=== PATIENT | male | born 1950 | race Caucasian/White ===

== ENCOUNTER 2021-10-25 12:57 | Observation (INO) | payer MEDICARE, SELFPAY ==
[2021-10-25] VITALS (13 sets, daily range): BP systolic 81–125; BP diastolic 56–91; PULSE 70–77; RESP 10–21; TEMP 36.1–36.8; O2SAT 98–100; BMI 22.9; BMI 21.9
--- NOTE | 2021-10-25 13:18 | EX.ED.DYSGE1 ---
HPI History of Present Illness Chief Complaint: Fatigue Informant: patient Narrative Narrative: 71-year-old male no prior visits to this institution was moved to halfway in [place] approximately 2 months ago. Since that time he states that he has not felt like eating or drinking much. He has a history of prior stroke and prostate cancer. Was noted over the past several days to become an increasing lethargic and weak. They started subcutaneous hydration but the patient kept removing the catheter. Family states that they were told that his kidney function is off but there was no labs that accompany the patient. I am told that his blood pressure at the halfway was 91/59. He has not had any fevers. Physical therapy stopped working with him because he was refusing it. Patient tells me he is not depressed. [facility] Medical History (Updated 10/25/21 @ 15:[address] Morgan Jovel, ) Adult failure to thrive Anemia, unspecified Atherosclerotic heart disease of [place] coronary artery without angina pectoris Cellulitis, unspecified Cerebral infarction, unspecified Chronic atrial fibrillation, unspecified Edema, unspecified Essential (primary) hypertension Hyperlipidemia, unspecified Ischemic cardiomyopathy Malignant neoplasm of prostate Muscle weakness (generalized) Personal history of COVID-19 Post covid-19 condition, unspecified Presence of cardiac pacemaker Type 2 diabetes mellitus without complications Home Medications amlodipine 2.5 mg PO DAILY 10/25/21 [History Last Taken Unknown] atorvastatin 20 mg PO QHS 10/25/21 [History Last Taken Unknown] bicalutamide 50 mg PO DAILY 10/25/21 [History Last Taken Unknown] clopidogrel 10/25/21 [History Last Taken Unknown] digoxin 125 mcg PO DAILY 10/25/21 [History Last Taken Unknown] furosemide 40 mg PO DAILY PRN PRN 10/25/21 [History Last Taken Unknown] leuprolide acetate (6 month) [Eligard (6 month)] 45 mg SUBCUT X1 10/25/21 [History Last Taken Unknown] losartan 50 mg 10/25/21 [History Last Taken Unknown] metoprolol succinate PO 10/25/21 [History Last Taken Unknown] mirtazapine mg 10/25/21 [History Last Taken Unknown] pantoprazole PO 10/25/21 [History Last Taken Unknown] sertraline mg 10/25/21 [History Last Taken Unknown] sitagliptin [Januvia] 100 mg PO DINNER 10/25/21 [History Last Taken Unknown] Allergy/AdvReac Type Severity Reaction Status Date / Time No Known Allergies Allergy Verified 10/25/21 14:29 Social History (Updated 10/25/21 @ 13:[address] Morgan Jovel, DO) housing: halfway current gender identity: male Smoking Status: Never smoker substance use type: does not use ROS ROS ED ROS Narrative Generalized fatigue Constitutional Constitutional ED: Denies chills, fever(s) or weight loss Eyes Eyes: Denies change in vision or diplopia ENT ENT ED: Denies ear pain, rhinorrhea or sore throat Cardiovascular Cardiovascular: Denies chest pain, orthopnea, palpitations or racing heartbeat Respiratory/Chest Respiratory/Chest: Denies cough, dyspnea or orthopnea Gastrointestinal Gastrointestinal: Denies abdominal pain, diarrhea, nausea or vomiting Genitourinary Genitourinary ED: Denies dysuria, hematuria or urinary frequency Musculoskeletal Musculoskeletal: Denies arthralgias or myalgias Integumentary Denies abscess or rash Neurologic Neurologic: Denies headache(s) or weakness Psychiatric Psychiatric: Denies anxiety, depression, suicidal ideation or suicidal thoughts Endocrine Endocrinology: Denies polydipsia, polyphagia or polyuria Allergic/Immunologic Allergic/Immunologic ED: Denies mouth swelling, tongue swelling or urticaria EXAM Physical Exam Const Vital Signs: 10/25/21 12:59 10/25/21 13:15 10/25/21 13:30 Temperature 97 F L Temperature Source Temporal Pulse Rate 70 70 70 Respiratory Rate 18 20 H Respiratory Effort Respiratory Pattern Blood Pressure 90/63 101/69 95/62 Blood Pressure Mean 72 79 73 Pulse Ox 98 98 Oxygen Delivery Method Room Air Room Air 10/25/21 13:45 10/25/21 14:00 10/25/21 14:15 Temperature Temperature Source Pulse Rate 70 70 70 Respiratory Rate 21 H 12 10 L Respiratory Effort Respiratory Pattern Blood Pressure 82/56 L 121/78 H 86/60 L Blood Pressure Mean 64 92 68 Pulse Ox 98 98 99 Oxygen Delivery Method Room Air Room Air Room Air 10/25/21 14:17 10/25/21 14:30 Temperature Temperature Source Pulse Rate 70 Respiratory Rate 13 Respiratory Effort Normal Non-Labored Respiratory Pattern Normal Blood Pressure 81/61 L Blood Pressure Mean 67 Pulse Ox 99 Oxygen Delivery Method Room Air Positive well developed and cachectic General Appearance ED: well developed and cachectic Nutritional Appearance: cachectic HEENT Reports normocephalic, head/scalp atraumatic, TM's clear and moist mucous membranes Negative for trauma Tympanic Membrane ED: Yes TM's clear Eyes PERRL and EOMs intact bilaterally Neck no lymphadenopathy, supple and no JVD Resp normal respiratory effort and clear to auscultation bilaterally Cardio regular rate, regular rhythm and no murmurs GI normal to inspection, nondistended, normoactive bowel sounds and non-tender Palpation: soft Back/Spine no CVA tenderness and normal ROM Extremity normal to inspection General Extremety ED: Negative for edema General Extremity: Negative for edema Neuro oriented x3 and CN's II-XII intact bilaterally Sensorium / Orientation: alert Motor Exam: strength 5/5 throughout Psych mental status grossly normal Mood & Affect: Negative for depressed or tearful Skin no rashes or lesions noted and no wounds MDM MDM MDM Narrative Medical decision making narrative: White blood cell count is 10.1 with a hemoglobin 12.2. Hemoglobin was ten 1 month ago. Creatinine today is 2.33 with a BUN of 47. 1 month ago his creatinine was 1. My interpretation of the chest x-ray is no acute process. Patient has been borderline hypotensive with mean systolic readings from 62-70. He has been receiving IV fluids. Plan will be admission for continued hydration. Lab Data Labs: Laboratory Results - last 24 hr 10/25/21 10/25/21 10/25/21 14:10 14:10 14:10 WBC 10.1 RBC 4.04 L Hgb 12.2 L Hct 37.0 L MCV 91.6 MCH 30.2 MCHC 33.0 RDW Std Deviation 48.9 H RDW Coeff of Jaleel 14.6 Plt Count 162 MPV 11.0 Immature Gran % (Auto) 0.400 Neut % (Auto) 66.6 Lymph % (Auto) 22.4 [place] % (Auto) 8.7 Eos % (Auto) 1.4 Baso % (Auto) 0.5 Absolute Neuts (auto) 6.8 Absolute Lymphs (auto) 2.27 Nucleated RBC % 0 PT 12.8 INR 1.0 APTT 27.6 Sodium 140 Potassium 3.9 Chloride 107 Carbon Dioxide 25.0 Anion Gap 8 BUN 47 H Creatinine 2.33 H Estim Creat Clear Calc 29.42 Est GFR (MDRD) Af Amer 36 L Est GFR (MDRD) Non-Af 29 L BUN/Creatinine Ratio 20.2 H Glucose 116 H Lactic Acid Calcium 9.2 Total Bilirubin 0.50 AST 12 L ALT 14 L Alkaline Phosphatase 68 Troponin I High Sens 35 Total Protein 7.3 Albumin 3.7 Globulin 3.6 Albumin/Globulin Ratio 1.0 Lipase 104 10/25/21 14:10 WBC RBC Hgb Hct MCV MCH MCHC RDW Std Deviation RDW Coeff of Jaleel Plt Count MPV Immature Gran % (Auto) Neut % (Auto) Lymph % (Auto) [place] % (Auto) Eos % (Auto) Baso % (Auto) Absolute Neuts (auto) Absolute Lymphs (auto) Nucleated RBC % PT INR APTT Sodium Potassium Chloride Carbon Dioxide Anion Gap BUN Creatinine Estim Creat Clear Calc Est GFR (MDRD) Af Amer Est GFR (MDRD) Non-Af BUN/Creatinine Ratio Glucose Lactic Acid 1.7 Calcium Total Bilirubin AST ALT Alkaline Phosphatase Troponin I High Sens Total Protein Albumin Globulin Albumin/Globulin Ratio Lipase Discharge Plan Dx/Rx/DC Orders Clinical Impression: Acute dehydration, Acute hypotension Disposition Disposition: Acute Care Hospital [facility]
[2021-10-25 14:26] LABS: Absolute Lymphocyte Count 2.27 X10^3/uL (0.83-4.51); Absolute Neutrophil Count 6.8 X10^3/uL (2.0-7.7); Basophil# 0.05 X10^3/uL; Basophil% 0.5 % (0-1); Eosinophil# 0.14 X10^3/uL; Eosinophils% 1.4 % (0-5); Hemoglobin 12.2 g/dL (13.0-16.5); Lymphocyte # 2.27 X10^3/ul (0.83-4.51); Lymphocyte % 22.4 % (19-41); Mean Corpuscular Hgb 30.2 pg (27.0-32.0); Mean Corpuscular Volume 91.6 fL (80-94); Monocyte# 0.88 X10^3/uL; Monocyte% 8.7 % (0-10); NRBC Flagged by Analyzer 0 % (0-5); Neutrophil # 6.76 X10^3/uL (2.7-7.7); Neutrophil % 66.6 % (47-70); Platelet Count 162 K/mm3 (150-450); RBC Distribution Width CV 14.6 % (11.6-14.6); RBC Distribution Width SD 48.9 fl (35.1-43.9); Red Blood Count 4.04 M/mm3 (4.6-6.2); White Blood Count 10.1 K/mm3 (4.4-11.0)
--- NOTE | 2021-10-25 14:35 | RAD_ITS ---
STUDY: X-RAY CHEST REASON FOR EXAM: Male, 71 years old. weakness TECHNIQUE: Single AP portable view of the chest. COMPARISON: None. FINDINGS: Left subclavian AICD. Status post median sternotomy. The lungs are clear and expanded. There is no demonstrated pleural abnormality. Normal size heart. Normal mediastinum and [place]. Normal visualized pulmonary arteries. Normal visualized aortic arch and descending thoracic aorta. Normal visualized thoracic spine. Normal visualized ribs, clavicles, and shoulders. There is no demonstrated abnormality of the visualized soft tissue structures of the upper abdomen. RAD/Chest 1 View (Portable) IMPRESSION: No active disease. Electronically Signed: Yusuf Mcclellan MD at 15:21 EDT ,
[2021-10-25 14:47] LABS: Prothrombin Time (Protime)PT. 12.8 SECONDS (11.7-14.9)
[2021-10-25 14:48] LABS: Partial Thromboplast Time 27.6 Seconds (24.1-36.2)
[2021-10-25 14:54] LABS: AST(SGOT) 12 U/L (15-37); Alanine Aminotransfer ALT/SGPT 14 U/L (16-61); Albumin, Serum 3.7 g/dL (3.2-5.0); Alkaline Phosphatase 68 U/L (45-117); Anion Gap 8 (5-15); BUN 47 mg/dL (7-18); BUN/Creat Ratio 20.2 RATIO (10-20); Calcium,Total 9.2 mg/dL (8.5-10.1); Chloride 107 mmol/L (98-107); Creatinine, Serum 2.33 mg/dL (0.70-1.30); EST Glomerular Filtration Rate 29 mL/min (>60); Est Glom Filt Rate - Afr Amer 36 mL/min (>60); Estimated Creatinine Clearance 29.42 ml/min; Globulin 3.6 g/dL (2.2-4.2); Glucose 116 mg/dL (74-106); Lipase 104 U/L (73-393); Potassium 3.9 mmol/L (3.5-5.1); Protein, Total 7.3 g/dL (6.4-8.2); Sodium Level 140 mmol/L (136-145); Troponin-I HS 35 pg/mL (3.0-78.0)
[2021-10-25 15:05] LABS: Lactic Acid 1.7 mmol/L (0.4-1.9)
[2021-10-25] MEDS: 0.9% Normal Saline 1,000 ML 999 ML IV ×2 (15:25→15:26)
--- NOTE | 2021-10-25 15:27 | HP.PCM.HOS_ITS ---
HPI - General General Date of Admission: 10/25/21 Date of Service: 10/25/21 Chief Complaint: Generalised weakness - a couple of days HPI Narrative LEXIS CORDOVA, is a 71 M who presents from the long term. Patient has been resident in the [facility] for the past 2 weeks. Patient has been having poor p.o. intake. He has been losing weight. Denied any fever or chills. He was recently treated for urine tract infection. He has a history of strokes, CAD status post CABG, prostate cancer. In the long term, his blood pressure was 91/59. Patient's vitals show blood pressure 104/64, heart rate 71, SPO2 99, temperature 98.2 F. His WBC count is 10.1, hemoglobin 12.2, platelet count 162, INR is 1.0, CMP is remarkable for BUN of 47, creatinine 2.33. His previous creatinine in August was 1.0. UA is unremarkable. Chest x-ray shows no acute cardiopulmonary disease [facility] Medical History Adult failure to thrive Anemia, unspecified Atherosclerotic heart disease of [place] coronary artery without angina pectoris Cellulitis, unspecified Cerebral infarction, unspecified Chronic atrial fibrillation, unspecified Edema, unspecified Essential (primary) hypertension Hyperlipidemia, unspecified Ischemic cardiomyopathy Malignant neoplasm of prostate Muscle weakness (generalized) Personal history of COVID-19 Post covid-19 condition, unspecified Presence of cardiac pacemaker Type 2 diabetes mellitus without complications Home Medications acetaminophen 650 mg PO Q4H PRN 10/25/21 [History Last Taken Unknown] albuterol sulfate [Ventolin HFA] 2 puff INHALATION Q6H PRN 10/25/21 [History Last Taken Unknown] amlodipine 2.5 mg PO DAILY 10/25/21 [History Last Taken Unknown] ascorbic acid (vitamin C) [Vitamin C] 500 mg PO BID 10/25/21 [History Last Taken Unknown] atorvastatin 20 mg PO QHS 10/25/21 [History Last Taken Unknown] bicalutamide 50 mg PO DAILY 10/25/21 [History Last Taken Unknown] cholecalciferol (vitamin D3) 25 mcg PO DAILY 10/25/21 [History Last Taken Unknown] clopidogrel 75 mg PO DAILY 10/25/21 [History Last Taken Unknown] cyanocobalamin (vitamin B-12) 500 mcg PO DAILY 10/25/21 [History Last Taken Unknown] digoxin 125 mcg PO DAILY 10/25/21 [History Last Taken Unknown] ferrous sulfate 325 mg PO BID 10/25/21 [History Last Taken Unknown] furosemide 40 mg PO DAILY PRN PRN 10/25/21 [History Last Taken Unknown] leuprolide acetate (6 month) [Eligard (6 month)] 45 mg SUBCUT X1 10/25/21 [History Last Taken Unknown] losartan 50 mg PO BID 10/25/21 [History Last Taken Unknown] magnesium oxide 400 mg PO DAILY 10/25/21 [History Last Taken Unknown] metoprolol succinate 200 mg PO BID 10/25/21 [History Last Taken Unknown] mirtazapine 7.5 mg PO QHS 10/25/21 [History Last Taken Unknown] multivitamin 1 tab PO DAILY 10/25/21 [History Last Taken Unknown] omega-3 fatty acids 1,000 mg PO DAILY 10/25/21 [History Last Taken Unknown] pantoprazole 20 mg PO DAILY 10/25/21 [History Last Taken Unknown] sertraline 50 mg PO DAILY 10/25/21 [History Last Taken Unknown] sitagliptin [Januvia] 100 mg PO DINNER 10/25/21 [History Last Taken Unknown] vitamin B complex [Vitamin B-50] 1 tab PO DAILY 10/25/21 [History Last Taken Unknown] Allergy/AdvReac Type Severity Reaction Status Date / Time No Known Allergies Allergy Verified 10/25/21 14:29 Family History unable to obtain unable to obtain Surgical History unable to obtain unable to obtain Social History housing: long term number of children: 2 current occupational status: retired current gender identity: male Smoking Status: Never smoker substance use type: does not use ROS Review of Systems ROS Unobtainable: due to encephalopathy Vital Signs Vital Signs Vital Signs: 10/25/21 12:59 10/25/21 13:15 10/25/21 13:30 Temperature 97 F L Temperature Source Temporal Pulse Rate 70 70 70 Respiratory Rate 18 20 H Respiratory Effort Respiratory Pattern Blood Pressure 90/63 101/69 95/62 Blood Pressure Mean 72 79 73 Pulse Ox 98 98 Oxygen Delivery Method Room Air Room Air 10/25/21 13:45 10/25/21 14:00 10/25/21 14:15 Temperature Temperature Source Pulse Rate 70 70 70 Respiratory Rate 21 H 12 10 L Respiratory Effort Respiratory Pattern Blood Pressure 82/56 L 121/78 H 86/60 L Blood Pressure Mean 64 92 68 Pulse Ox 98 98 99 Oxygen Delivery Method Room Air Room Air Room Air 10/25/21 14:17 10/25/21 14:30 10/25/21 15:24 Temperature Temperature Source Pulse Rate 70 77 Respiratory Rate 13 18 Respiratory Effort Normal Non-Labored Respiratory Pattern Normal Blood Pressure 81/61 L 109/84 H Blood Pressure Mean 67 92 Pulse Ox 99 99 Oxygen Delivery Method Room Air Weight Weight: 72.575 kg Body Mass Index (BMI) 22.9 Physical Exam Narrative Physical exam: General: Alert, Oriented x2(person and time but not place) cooperative, no apparent distress, appears confused, cachectic HEENT: Atraumatic Oral: Dry oral mucosa Neck: Supple Lungs: Diminished to auscultation Cardiovascular: HS I+II, regular, no murmurs Abdomen: Bowel Sounds Present, Soft, Non Tender Extremities: No edema Skin: No rashes, No breakdown Neurological: Grossly intact Psych/Mental Status: Appropriate Results Lab / Micro Data Result Diagrams: 10/25/21 14:10 10/25/21 14:10 Labs: Laboratory Results - last 24 hr 10/25/21 14:10: WBC 10.1, RBC 4.04 L, Hgb 12.2 L, Hct 37.0 L, MCV 91.6, MCH 30.2, MCHC 33.0, RDW Std Deviation 48.9 H, RDW Coeff of Jaleel 14.6, Plt Count 162, MPV 11.0, Immature Gran % (Auto) 0.400, Neut % (Auto) 66.6, Lymph % (Auto) 22.4, [place] % (Auto) 8.7, Eos % (Auto) 1.4, Baso % (Auto) 0.5, Absolute Neuts (auto) 6.8, Absolute Lymphs (auto) 2.27, Nucleated RBC % 0 10/25/21 14:10: PT 12.8, INR 1.0, APTT 27.6 10/25/21 14:10: Sodium 140, Potassium 3.9, Chloride 107, Carbon Dioxide 25.0, Anion Gap 8, BUN 47 H, Creatinine 2.33 H, Estim Creat Clear Calc 29.42, Est GFR (MDRD) Af Amer 36 L, Est GFR (MDRD) Non-Af 29 L, BUN/Creatinine Ratio 20.2 H, Glucose 116 H, Calcium 9.2, Total Bilirubin 0.50, AST 12 L, ALT 14 L, Alkaline Phosphatase 68, Troponin I High Sens 35, Total Protein 7.3, Albumin 3.7, Gl obulin 3.6, Albumin/Globulin Ratio 1.0, Lipase 104 10/25/21 14:10: Lactic Acid 1.7 Radiology Impression Chest X-Ray 10/25/21 14:35 IMPRESSION: No active disease. Electronically Signed: Yusuf Mcclellan MD at 15:21 EDT , Assessment & Plan Assessment/Plan (1) JANESSA (acute kidney injury): (2) Acute dehydration: (3) Acute hypotension: (4) Debility: PLAN: 1. Acute kidney injury, prerenal secondary to dehydration/hypotension Patient's admitting creatinine was 2.33, previous creatinine from long term records was 1.0 Will admit to PCU, IV fluids, kidney and bladder ultrasound, UA, urine sodium, urine urea Hold losartan, Lasix, statin Repeat blood work in am 2. Hypotension, related to dehydration, medication side effect, fluid responsive Continue on IV fluids, hold antihypertensives 3. Cognitive impairment, likely secondary to vascular dementia, history of strokes Continue on Plavix. Hold losartan 4. Type II DM, on Januvia, continue same, Add blood glucose checks with insulin sliding scale 5. Prostate cancer, on leuprolide and bicalutamide Will hold these for now 6. DVT PPx - Heparin SC 7. Code status - Full code I discussed and explained in details the various types of CODE STATUS-full code, DNR CCA, DNR CC. Patient is confused and his daughter is his power of emt i/99 for healthcare. She stated that patient does not have a living will. She would like to think more about the options and communicate back to her treatment team. She understands the patient to be a full code for now. Time spent discussing CODE STATUS 18 minutes Charges/Coding Visit Charges Inpatient E&M: 88522 Init Hosp L3 Procedures Hospitalists Procedures: 04871 Advncd Care Plan 30 Min
--- NOTE | 2021-10-25 15:33 | NURSING ---
110 nuamah dehydration, thu
[2021-10-25 15:38] LABS: Bacteria 0 SEEN /hpf (None Seen); Mucous, Urine 0 SEEN /hpf (<or=2+); Red Blood Cells-Urine 0 SEEN /hpf (0-5); Squamous Epithelial Cells - UA 0 SEEN /hpf (0-5)
--- NOTE | 2021-10-25 15:44 | US_ITS ---
EXAM: US RETROPERITONEAL LIMITED, RENAL CLINICAL INDICATION: JANESSA TECHNIQUE: Limited grayscale and color Doppler sonographic evaluation of the retroperitoneum was performed. This report was created using [employer] report [employer] technology. COMPARISON: None. FINDINGS: RIGHT KIDNEY: The right kidney measures 10.5 x 5.5 x 5.5 cm. The renal cortex measures 1.6 cm. There is a small nonobstructing calyceal stone that measures 3 mm. No perinephric collection is demonstrated. LEFT KIDNEY: The left kidney measures 10.6 x 5.5 x 4.7 cm. The left renal cortex measures 1.3 cm. BLADDER: The bladder measures 7.6 x 6.2 x 8.5 cm for viable 209 mL. There is a small amount of echogenic debris seen dependently in the bladder. OTHER FINDINGS: There is a 2.1 x 2.4 x 2.6 cm anechoic structure compatible with a cyst. US/Kidney and Bladder IMPRESSION: Minimal echogenic debris within the urinary bladder. There is an anechoic structure in the right kidney compatible with a cyst. No other abnormalities identified. Electronically Signed: Jasbir Whatley MD at 2:32 EDT ,
[2021-10-25 16:01] LABS: Color, Urine Yellow (Yellow); Glucose, Dipstick Normal (Normal); Ketone-Dipstick Negative (Negative); Urine Bilirubin Dipstick Negative (Negative); Urine Clarity Clear (Clear)
[2021-10-25 16:02] LABS: Leukocyte Esterase-Dipstick 500 /ul (Negative); Nitrite-Dipstick Negative (Negative); Occult Blood-Urine ~250 /ul (Negative); Protein-Dipstick 15 mg/dl (Negative); Urine Urobilinogen Normal (Normal)
[2021-10-25 16:03] LABS: White Blood Cells 10-25 SEEN /hpf (0-5)
--- NOTE | 2021-10-25 16:45 | CASEMGMT ---
MASON Note: MASON was advised by [facility] medical social consultant that patient's daughter was interested in information about resources regarding SNF. MASON and MASON Gretchen Meyers went to patient's room and provided her with [employer] information. No other issues or concerns voiced. MASON remains available. Plan: Resources provided Tori BECK
[2021-10-25 17:05] LABS: Bedside Glucose 101 mg/dL (74-106)
[2021-10-25] MEDS: 0.9% Normal Saline 1,000 ML 100 ML IV (17:30)
[2021-10-25] MEDS: LINAGLIPTIN 5 MG TABLET PO (17:59)
[2021-10-25] MEDS: Menthol/Lanolin/Calamine/Znox 113 GM Tube 1 APPLIC TOPICAL (21:53)
[2021-10-25] MEDS: Heparin Injection (Vial) 5,000 UNIT/ML VIAL 5000 UNIT SC (21:54)
[2021-10-25 22:31] LABS: Bedside Glucose 104 mg/dL (74-106)
[2021-10-26] VITALS (11 sets, daily range): BP systolic 106–118; BP diastolic 62–75; PULSE 69–70; RESP 15–18; TEMP 36.6–37.2; O2SAT 97–100
[2021-10-26] MEDS: 0.9% Normal Saline 1,000 ML 100 ML IV ×2 (03:03→12:47)
[2021-10-26 06:17] LABS: Absolute Lymphocyte Count 1.75 X10^3/uL (0.83-4.51); Absolute Neutrophil Count 4.7 X10^3/uL (2.0-7.7); Basophil# 0.03 X10^3/uL; Basophil% 0.4 % (0-1); Eosinophil# 0.08 X10^3/uL; Eosinophils% 1.1 % (0-5); Hematocrit 29.8 % (40-54); Hemoglobin 9.8 g/dL (13.0-16.5); Lymphocyte # 1.75 X10^3/ul (0.83-4.51); Lymphocyte % 23.9 % (19-41); Mean Corp Hgb Conc 32.9 g/dL (32-36); Mean Corpuscular Hgb 30.4 pg (27.0-32.0); Mean Corpuscular Volume 92.5 fL (80-94); Monocyte# 0.74 X10^3/uL; Monocyte% 10.1 % (0-10); NRBC Flagged by Analyzer 0 % (0-5); Neutrophil # 4.69 X10^3/uL (2.7-7.7); Platelet Count 110 K/mm3 (150-450); RBC Distribution Width CV 14.7 % (11.6-14.6); RBC Distribution Width SD 49.8 fl (35.1-43.9); Red Blood Count 3.22 M/mm3 (4.6-6.2); White Blood Count 7.3 K/mm3 (4.4-11.0)
[2021-10-26] MEDS: Menthol/Lanolin/Calamine/Znox 113 GM Tube 1 APPLIC TOPICAL ×3 (06:33→21:03)
[2021-10-26 06:51] LABS: Bedside Glucose 97 mg/dL (74-106)
[2021-10-26 06:51] LABS: AST(SGOT) 10 U/L (15-37); Alanine Aminotransfer ALT/SGPT 14 U/L (16-61); Albumin, Serum 2.9 g/dL (3.2-5.0); Alkaline Phosphatase 59 U/L (45-117); Anion Gap 7 (5-15); BUN 37 mg/dL (7-18); BUN/Creat Ratio 22.6 RATIO (10-20); Calcium,Total 8.1 mg/dL (8.5-10.1); Chloride 114 mmol/L (98-107); Creatinine, Serum 1.64 mg/dL (0.70-1.30); EST Glomerular Filtration Rate 44 mL/min (>60); Est Glom Filt Rate - Afr Amer 53 mL/min (>60); Estimated Creatinine Clearance 40.54 ml/min; Glucose 102 mg/dL (74-106); Potassium 3.7 mmol/L (3.5-5.1); Protein, Total 5.9 g/dL (6.4-8.2); Sodium Level 143 mmol/L (136-145)
--- NOTE | 2021-10-26 07:21 | PCM.PN.HOSP ---
Subjective Subjective Follow-up on debility/JANESSA: Patient was seen and examined. He is much awake and alert. Denied any new complaint. No acute events overnight. Objective Data Objective Data Vital Signs: Vital Signs Temp Pulse Resp BP Pulse Ox 97.8 F 70 16 106/62 99 10/26/21 03:06 10/26/21 03:15 10/26/21 03:06 10/26/21 03:06 10/26/21 03:06 Oxygen Delivery Method Room Air Weight: 70.4 kg Body Mass Index (BMI) 21.9 Intake & Output: Intake and Output for Last 24 Hours 10/24/21 10/25/21 10/26/21 23:59 23:59 23:59 Intake Total 1376.65 / 1376.65 1005 / 1005 Output Total 525 / 525 350 / 350 Balance 851.65 / 851.65 655 / 655 Lab / Micro Data Result Diagrams: 10/26/21 05:40 10/26/21 05:40 Labs: Laboratory Results - last 24 hr 10/25/21 14:10: WBC 10.1, RBC 4.04 L, Hgb 12.2 L, Hct 37.0 L, MCV 91.6, MCH 30.2, MCHC 33.0, RDW Std Deviation 48.9 H, RDW Coeff of Jaleel 14.6, Plt Count 162, MPV 11.0, Immature Gran % (Auto) 0.400, Neut % (Auto) 66.6, Lymph % (Auto) 22.4, [place] % (Auto) 8.7, Eos % (Auto) 1.4, Baso % (Auto) 0.5, Absolute Neuts (auto) 6.8, Absolute Lymphs (auto) 2.27, Nucleated RBC % 0 10/25/21 14:10: PT 12.8, INR 1.0, APTT 27.6 10/25/21 14:10: Sodium 140, Potassium 3.9, Chloride 107, Carbon Dioxide 25.0, Anion Gap 8, BUN 47 H, Creatinine 2.33 H, Estim Creat Clear Calc 29.42, Est GFR (MDRD) Af Amer 36 L, Est GFR (MDRD) Non-Af 29 L, BUN/Creatinine Ratio 20.2 H, Glucose 116 H, Calcium 9.2, Total Bilirubin 0.50, AST 12 L, ALT 14 L, Alkaline Phosphatase 68, Troponin I High Sens 35, Total Protein 7.3, Albumin 3.7, Globulin 3.6, Albumin/Globulin Ratio 1.0, Lipase 104 10/25/21 14:10: Lactic Acid 1.7 10/25/21 15:30: Urine Color Yellow, Urine Clarity Clear, Urine pH 6.0, Ur Specific [place] 1.010, Urine Protein 15 H, Urine Glucose (UA) Normal, Urine Ketones Negative, Urine Occult Blood ~250, Urine Nitrite Negative, Urine Bilirubin Negative, Urine Urobilinogen Normal, Ur Leukocyte Esterase 500 H, Urine RBC 0 SEEN, Urine WBC 10-25 SEEN, Ur Squamous Epith Cells 0 SEEN, Urine Bacteria 0 SEEN, Urine Mucus 0 SEEN 10/25/21 16:43: POC Glucose 101 10/25/21 21:52: POC Glucose 104 10/26/21 05:40: WBC 7.3, RBC 3.22 L, Hgb 9.8 L, Hct 29.8 L, MCV 92.5, MCH 30.4, MCHC 32.9, RDW Std Deviation 49.8 H, RDW Coeff of Jaleel 14.7 H, Plt Count 110 L, MPV 11.0, Immature Gran % (Auto) 0.500, Neut % (Auto) 64.0, Lymph % (Auto) 23.9, [place] % (Auto) 10.1 H, Eos % (Auto) 1.1, Baso % (Auto) 0.4, Absolute Neuts (auto) 4.7, Absolute Lymphs (auto) 1.75, Nucleated RBC % 0 10/26/21 05:40: Sodium 143, Potassium 3.7, Chloride 114 H, Carbon Dioxide 22.0, Anion Gap 7, BUN 37 H, Creatinine 1.64 H, Estim Creat Clear Calc 40.54, Est GFR (MDRD) Af Amer 53 L, Est GFR (MDRD) Non-Af 44 L, BUN/Creatinine Ratio 22.6 H, Glucose 102, Calcium 8.1 L, Total Bilirubin 0.50, AST 10 L, ALT 14 L, Alkaline Phosphatase 59, Total Protein 5.9 L, Albumin 2.9 L, Globulin 3.0, Albumin/Globulin Ratio 1.0 10/26/21 06:32: POC Glucose 97 Radiography Diagnostic Testing: Radiology Impression Chest X-Ray 10/25/21 14:35 IMPRESSION: No active disease. Electronically Signed: Yusuf Mcclellan MD at 15:21 EDT , Physical Exam Narrative Physical exam: General: Alert, Oriented x3, cachectic, comfortable HEENT: Atraumatic Oral: Dry oral mucosa Neck: Supple Lungs: Diminished to auscultation Cardiovascular: HS I+II, regular, no murmurs Abdomen: Bowel Sounds Present, Soft, Non Tender Extremities: No edema Skin: No rashes, No breakdown Neurological: Grossly intact Psych/Mental Status: Appropriate Assessment & Plan Assessment/Plan (1) JANESSA (acute kidney injury): (2) Acute dehydration: (3) Acute hypotension: (4) Debility: PLAN: 1. Acute kidney injury, prerenal secondary to dehydration/hypotension Patient's admitting creatinine was 2.33, previous creatinine from [facility] records was 1.0 Creatinine is now 1.64. Continue on IV fluids, Follow-up on kidney and bladder ultrasound Hold losartan, Lasix, statin Repeat blood work in am 2. Hypotension, related to dehydration, medication side effect, fluid responsive, improving Resume metoprolol 12.5 mg p.o. twice daily Continue to monitor vitals 3. Cognitive impairment, likely secondary to vascular dementia, history of strokes Continue on Plavix. Continue to hold losartan 4. Type II DM, blood glucose are controlled Continue on Januvia and blood glucose checks with insulin sliding scale 5. Prostate cancer, on leuprolide and bicalutamide Will hold these for now 6. DVT PPx - Heparin SC 7. Code status - Full code Charges/Coding Visit Charges Inpatient E&M: 02099 Subs Hosp L2
[2021-10-26] MEDS: Heparin Injection (Vial) 5,000 UNIT/ML VIAL 5000 UNIT SC ×2 (09:22→21:04)
[2021-10-26] MEDS: Clopidogrel Bisulfate 75 MG Tablet PO (09:22)
[2021-10-26] MEDS: Vitamin B Comp W-C Capsule 1 CAP PO (09:22)
[2021-10-26] MEDS: Cyanocobalamin 500 MCG Tablet PO (09:22)
[2021-10-26 09:38] LABS: Magnesium 2.1 mg/dL (1.6-2.6)
[2021-10-26 12:11] LABS: Bedside Glucose 114 mg/dL (74-106)
[2021-10-26] MEDS: 0.45% Normal Saline 1,000 ML 100 ML IV (14:07)
[2021-10-26] MEDS: Metoprolol(XL)Succ 25 MG Tablet 12.5 MG PO ×2 (14:07→21:06)
[2021-10-26] MEDS: LINAGLIPTIN 5 MG TABLET PO (17:31)
[2021-10-26 17:55] LABS: Bedside Glucose 198 mg/dL (74-106)
[2021-10-26] MEDS: Insulin Lispro 100 UNIT/ML INSULN.PEN SC (21:04)
[2021-10-26] MEDS: Mirtazapine 15 MG Tablet 7.5 MG PO (21:05)
[2021-10-26] MEDS: Atorvastatin Calcium 20 MG Tablet PO (21:05)
[2021-10-26 21:06] LABS: Bedside Glucose 188 mg/dL (74-106)
[2021-10-26] MEDS: Ascorbic Acid 500 MG Tablet PO (21:08)
[2021-10-27] VITALS (14 sets, daily range): BP systolic 111–143; BP diastolic 61–87; PULSE 70–86; RESP 16–18; TEMP 36.6–37.2; O2SAT 92–99
[2021-10-27 05:20] LABS: Absolute Lymphocyte Count 1.81 X10^3/uL (0.83-4.51); Absolute Neutrophil Count 3.5 X10^3/uL (2.0-7.7); Basophil# 0.02 X10^3/uL; Basophil% 0.3 % (0-1); Eosinophil# 0.07 X10^3/uL; Eosinophils% 1.1 % (0-5); Hematocrit 26.2 % (40-54); Hemoglobin 8.6 g/dL (13.0-16.5); Lymphocyte # 1.81 X10^3/ul (0.83-4.51); Lymphocyte % 29.6 % (19-41); Mean Corp Hgb Conc 32.8 g/dL (32-36); Mean Corpuscular Hgb 30.1 pg (27.0-32.0); Mean Corpuscular Volume 91.6 fL (80-94); Mean Platelet Vol. 11.1 fl (6.2-12.0); Monocyte# 0.71 X10^3/uL; Monocyte% 11.6 % (0-10); NRBC Flagged by Analyzer 0 % (0-5); Neutrophil # 3.49 X10^3/uL (2.7-7.7); Neutrophil % 57.2 % (47-70); POSITIVE COUNT YES; Platelet Count 91 K/mm3 (150-450); RBC Distribution Width CV 15.2 % (11.6-14.6); RBC Distribution Width SD 50.6 fl (35.1-43.9); Red Blood Count 2.86 M/mm3 (4.6-6.2); White Blood Count 6.1 K/mm3 (4.4-11.0)
[2021-10-27 05:45] LABS: ALB/GLOB Ratio 0.9 RATIO (0.9-2.4); AST(SGOT) 10 U/L (15-37); Alanine Aminotransfer ALT/SGPT 11 U/L (16-61); Albumin, Serum 2.6 g/dL (3.2-5.0); Alkaline Phosphatase 52 U/L (45-117); Anion Gap 7 (5-15); BUN 29 mg/dL (7-18); BUN/Creat Ratio 20.9 RATIO (10-20); Calcium,Total 7.9 mg/dL (8.5-10.1); Chloride 112 mmol/L (98-107); Creatinine, Serum 1.39 mg/dL (0.70-1.30); EST Glomerular Filtration Rate 53 mL/min (>60); Est Glom Filt Rate - Afr Amer 65 mL/min (>60); Estimated Creatinine Clearance 47.83 ml/min; Globulin 2.9 g/dL (2.2-4.2); Glucose 172 mg/dL (74-106); Potassium 3.7 mmol/L (3.5-5.1); Protein, Total 5.5 g/dL (6.4-8.2); Sodium Level 141 mmol/L (136-145)
[2021-10-27] MEDS: Menthol/Lanolin/Calamine/Znox 113 GM Tube 1 APPLIC TOPICAL ×3 (06:38→22:00)
[2021-10-27 06:50] LABS: Bedside Glucose 136 mg/dL (74-106)
--- NOTE | 2021-10-27 07:58 | PN.HOSP_ITS ---
Subjective Subjective Follow-up for JANESSA. Patient was admitted with low blood pressure. History of prostate cancer on leuprolide, diabetes mellitus type 2 and dementia. Objective Data Objective Data Vital Signs: Vital Signs Temp Pulse Resp BP Pulse Ox 97.8 F 70 18 133/76 H 98 10/27/21 06:30 10/27/21 07:29 10/27/21 06:30 10/27/21 06:30 10/27/21 06:30 Oxygen Delivery Method Room Air Weight: 158 lb 8.198 oz Body Mass Index (BMI) 21.9 Intake & Output: Intake and Output for Last 24 Hours 10/25/21 10/26/21 10/27/21 23:59 23:59 23:59 Intake Total 1376.65 / 1376.65 2935.00 / 4043.33 1208.33 / 1208.33 Output Total 525 / 525 1200 / 1400 450 / 450 Balance 851.65 / 851.65 1735.00 / 2643.33 758.33 / 758.33 Medical Nutrition Assessment Dietitian: Malnutrition Criteria Met Start: 10/26/21 13:58 Freq: Status: Active Protocol: Document 10/26/21 13:58 [facility] (Rec: 10/26/21 13:59 [facility] [id number]) Nutrition Malnutrition Evidence of Malnutrition Exists Yes Malnutrition (severe): Acute Illness/Injury Evidenced By Suboptimal Energy Intake ( Severe),Physical Changes (Mild ),Physical Changes (Moderate) Clinical Problem Acute Disease or Injury Related Malnutrition Etiology related to physiological changes decreasing appetite and increasing nutrient needs Signs/Symptoms as evidenced by moderate muscle wasting in the clavicular region as well as hamstrings, and mild muscle wasting in the temporal region , shoulders and calves per NFPA, as well as report of poor appetite and oral intakes for the past 2 weeks ( suspected prolonged poor oral intake of less than or equal to 50% of estimated energy needs for greater than 5 days) . Status Active Problem Recommendation Dietitian Recommendations/Changes Regular diet with cut up foods . Ensure Enlive 4x/day with medpass (120mL). Magic Cup daily with lunch. Ensure Pudding BID with breakfast and dinner. Trialed Ensure Enlive vanilla milkshake with lunch today. Will monitor tolerance of ONS use and make adjustments as needed. Lab / Micro Data Result Diagrams: 10/27/21 04:45 10/27/21 04:45 Labs: Laboratory Results - last 24 hr 10/26/21 05:40: Magnesium 2.1 10/26/21 11:57: POC Glucose 114 H 10/26/21 17:29: POC Glucose 198 H 10/26/21 20:58: POC Glucose 188 H 10/27/21 04:45: WBC 6.1, RBC 2.86 L, Hgb 8.6 L, Hct 26.2 L, MCV 91.6, MCH 30.1, MCHC 32.8, RDW Std Deviation 50.6 H, RDW Coeff of Jaleel 15.2 H, Plt Count 91 L, MPV 11.1, Immature Gran % (Auto) 0.200, Neut % (Auto) 57.2, Lymph % (Auto) 29.6, [place] % (Auto) 11.6 H, Eos % (Auto) 1.1, Baso % (Auto) 0.3, Absolute Neuts (auto) 3.5, Absolute Lymphs (auto) 1.81, Nucleated RBC % 0 10/27/21 04:45: Sodium 141, Potassium 3.7, Chloride 112 H, Carbon Dioxide 22.0, Anion Gap 7, BUN 29 H, Creatinine 1.39 H, Estim Creat Clear Calc 47.83, Est GFR (MDRD) Af Amer 65, Est GFR (MDRD) Non-Af 53 L, BUN/Creatinine Ratio 20.9 H, Glucose 172 H, Calcium 7.9 L, Total Bilirubin 0.30, AST 10 L, ALT 11 L, Alkaline Phosphatase 52, Total Protein 5.5 L, Albumin 2.6 L, Globulin 2.9, Albumin/Globulin Ratio 0.9 10/27/21 06:41: POC Glucose 136 H Micro: Microbiology 10/25/21 13:50 Blood Culture (Wb) - Anticubital Right Blood Culture - Preliminary No growth in 48 hours. 10/25/21 14:10 Blood Culture (Wb) - Anticubital Left Blood Culture - Preliminary No growth in 48 hours. Physical Exam Narrative Hypotension will dissolve. Last blood pressure 143/87, heart rate 70/min. lunchroom monitor shows paced rhythm. Physical exam General: Awake, cognitive slowness, responds slowly. HEENT: Atraumatic, PERRLA, EOMI, Normocephalic Oral: Oral mucosa moist. No Gingival or Mucosal Lesions/ Ulcerations Neck: Supple, No JVD, Negative Carotid Bruits Lungs: Air entry diminished in bilateral lung bases. No crepitation/rhonchi Cardiovascular: Paced rhythm, normal S1, Normal S2, systolic murmur over right second ICS. Status post AICD Abdomen: Bowel Sounds Present, Soft, Non Tender, Non-Distended : No renal angle tenderness. No suprapubic tenderness. Extremities: No edema, Capillary Refill Less than 3 Seconds Skin: No rashes, No breakdown Musculoskeletal: No Tenderness to Palpation of Joints or Extremities Neurological: DTR 2+/4, muscle strength 4/5 at major joints. Psych/Mental Status: Flat affect. Dementia Assessment & Plan Assessment/Plan (1) JANESSA (acute kidney injury): (2) Acute dehydration: (3) Acute hypotension: (4) Debility: PLAN: Patient is 71-year-old gentleman admitted from [facility] with decreased/poor p.o. intake, generalized weakness, loss of weight. Patient recently treated for UTI. 1. Acute kidney injury, prerenal from hypotension/hypovolemia Patient's admitting creatinine was 2.33, previous creatinine from [facility] records was 1.0. Creatinine responded to IV. Last BUN/creatinine 29/1.39. Follow-up on kidney and bladder ultrasound, is ordered Hold losartan, Lasix, statin. Monitor kidney function electrolytes. 2. CAD status post CABG, status post AICD. Patient had hypotension most likely due to dehydration, medication side effect. Patient blood pressure responded with fluid. Hypotension resolved. Patient on metoprolol 12.5 mg p.o. twice daily. Monitor vitals. 3. Cognitive impairment, likely secondary to vascular dementia, history of strokes Continue on Plavix. Continue to hold losartan 4. Type II DM, blood glucose are controlled Continue on Januvia and blood glucose checks with insulin sliding scale 5. Prostate cancer, on leuprolide and bicalutamide with anemia of chronic disease, normochromic normocytic anemia/neoplastic disease: He globin is 8.6. Patient admitted with hemoglobin 12.2 probably hemoconcentrated. No acute blood loss. Hold leuprolide and be flutamide. 6. DVT PPx - Heparin SC. Discontinue if platelet count drops less than 50,000 or hemoglobin less than 8 g% 7. Code status - Full code I talked to the patient's daughter who is power of patent prosecution attorney for health near the bedside. She said her father had a stroke and his cognitive decline/dementia. He also has recently diagnosed prostate cancer about 1 to 2 years ago and follows outside urologist and oncologist. I gave her options of oncologist around the [facility]. Patient also had COVID infection found in outside hospital in July 2021 when he was admitted in [facility] after 2 falls. After that patient had 1 short of COVID-vaccine. Patient might have dementia probably vascular dementia Charges/Coding Visit Charges Inpatient E&M: 98829 Subs Hosp L2
[2021-10-27] MEDS: Vitamin B Comp W-C Capsule 1 CAP PO (09:14)
[2021-10-27] MEDS: 0.45% Normal Saline 1,000 ML 100 ML IV ×3 (09:16→19:16)
[2021-10-27] MEDS: Clopidogrel Bisulfate 75 MG Tablet PO (09:17)
[2021-10-27] MEDS: Heparin Injection (Vial) 5,000 UNIT/ML VIAL 5000 UNIT SC ×2 (09:17→22:05)
[2021-10-27] MEDS: Metoprolol(XL)Succ 25 MG Tablet 12.5 MG PO ×2 (09:18→21:54)
[2021-10-27] MEDS: Cyanocobalamin 500 MCG Tablet PO (09:22)
[2021-10-27] MEDS: Ascorbic Acid 500 MG Tablet PO ×2 (09:22→21:57)
[2021-10-27] MEDS: Insulin Lispro 100 UNIT/ML INSULN.PEN SC ×3 (12:04→22:03)
[2021-10-27 12:15] LABS: Bedside Glucose 193 mg/dL (74-106)
[2021-10-27] MEDS: LINAGLIPTIN 5 MG TABLET PO (16:34)
[2021-10-27 16:40] LABS: Bedside Glucose 241 mg/dL (74-106)
[2021-10-27] MEDS: Atorvastatin Calcium 20 MG Tablet PO (21:57)
[2021-10-27] MEDS: Mirtazapine 15 MG Tablet 7.5 MG PO (21:58)
[2021-10-27 22:40] LABS: Bedside Glucose 168 mg/dL (74-106)
[2021-10-28] VITALS (15 sets, daily range): BP systolic 123–128; BP diastolic 56–83; PULSE 68–84; RESP 16–18; TEMP 36.4–37.1; O2SAT 92–97
[2021-10-28] MEDS: 0.45% Normal Saline 1,000 ML 100 ML IV ×2 (05:16→16:24)
[2021-10-28] MEDS: Acetaminophen 325 MG Tablet 650 MG PO (06:33)
[2021-10-28 06:51] LABS: Bedside Glucose 128 mg/dL (74-106)
[2021-10-28 08:34] LABS: Absolute Neutrophil Count 3.4 X10^3/uL (2.0-7.7); Basophil# 0.02 X10^3/uL; Basophil% 0.3 % (0-1); Eosinophil# 0.06 X10^3/uL; Hematocrit 25.2 % (40-54); Hemoglobin 8.2 g/dL (13.0-16.5); Lymphocyte % 27.4 % (19-41); Mean Corp Hgb Conc 32.5 g/dL (32-36); Mean Corpuscular Hgb 30.1 pg (27.0-32.0); Mean Corpuscular Volume 92.6 fL (80-94); Mean Platelet Vol. 10.5 fl (6.2-12.0); Monocyte# 0.74 X10^3/uL; Monocyte% 12.7 % (0-10); NRBC Flagged by Analyzer 0 % (0-5); Neutrophil # 3.38 X10^3/uL (2.7-7.7); Neutrophil % 58.1 % (47-70); POSITIVE COUNT YES; Platelet Count 84 K/mm3 (150-450); RBC Distribution Width SD 50.4 fl (35.1-43.9); Red Blood Count 2.72 M/mm3 (4.6-6.2); White Blood Count 5.8 K/mm3 (4.4-11.0)
[2021-10-28] MEDS: Metoprolol(XL)Succ 25 MG Tablet 12.5 MG PO ×2 (08:47→22:34)
[2021-10-28] MEDS: Cyanocobalamin 500 MCG Tablet PO (08:47)
[2021-10-28] MEDS: Ascorbic Acid 500 MG Tablet PO ×2 (08:47→22:34)
[2021-10-28] MEDS: Clopidogrel Bisulfate 75 MG Tablet PO (08:47)
[2021-10-28] MEDS: Vitamin B Comp W-C Capsule 1 CAP PO (08:47)
[2021-10-28] MEDS: Heparin Injection (Vial) 5,000 UNIT/ML VIAL 5000 UNIT SC ×2 (08:47→22:28)
[2021-10-28 09:09] LABS: Anion Gap 7 (5-15); BUN 22 mg/dL (7-18); BUN/Creat Ratio 17.9 RATIO (10-20); Calcium,Total 7.8 mg/dL (8.5-10.1); Chloride 114 mmol/L (98-107); Creatinine, Serum 1.23 mg/dL (0.70-1.30); EST Glomerular Filtration Rate 62 mL/min (>60); Est Glom Filt Rate - Afr Amer 74 mL/min (>60); Estimated Creatinine Clearance 56.05 ml/min; Glucose 123 mg/dL (74-106); Potassium 4.1 mmol/L (3.5-5.1); Sodium Level 142 mmol/L (136-145)
--- NOTE | 2021-10-28 10:03 | CASEMGMT ---
Patient is from [facility] [place]. MASON called Callie at [facility] and patient will need a pre-cert to return skilled. MASON faxed all clinical information to [facility] [place] and asked Linda to please start the pre-cert as patient is ready for discharge. MASON will also check in with patient's daughter, Mirella. Kimmie Seals ASSISTANT SECRETARY [employer]
--- NOTE | 2021-10-28 10:33 | CASEMGMT ---
MASON called patient's daughter, Mirella. MASON left Mirella a voice mail requesting a return call. Plan: d/c back to [facility] pending pre-cert. Kimmie SANZ
--- NOTE | 2021-10-28 11:07 | CASEMGMT ---
MASON received a return call from patient's daughter Mirella. Mirella confirmed the plan is for patient to return to [facility]. MASON explained that [facility] will submit information to insurance to see if they will approve patient for skilled level of care. MASON explained what this meant as Mirella did not understand. SW told her likely will not hear back from insurance today. Someone will call her when patient is being discharged. Kimmie SANZ
[2021-10-28 11:20] LABS: Bedside Glucose 125 mg/dL (74-106)
--- NOTE | 2021-10-28 16:21 | PN.HOSP_ITS ---
Subjective Subjective Follow-up for JANESSA and hypotension. Objective Data Objective Data Vital Signs: Vital Signs Temp Pulse Resp BP Pulse Ox 98 F 68 16 127/56 H 95 10/28/21 14:15 10/28/21 14:15 10/28/21 14:15 10/28/21 14:15 10/28/21 14:15 Oxygen Delivery Method Room Air Weight: 171 lb Body Mass Index (BMI) 21.9 Intake & Output: Intake and Output for Last 24 Hours 10/26/21 10/27/21 10/28/21 23:59 23:59 23:59 Intake Total 2935.00 / 4043.33 3735.00 / 3735.00 1000 / 1000 Output Total 1200 / 1400 1650 / 1900 950 / 950 Balance 1735.00 / 2643.33 2085.00 / 1835.00 50 / 50 Medical Nutrition Assessment Dietitian: Malnutrition Criteria Met Start: 10/26/21 13:58 Freq: Status: Active Protocol: Document 10/26/21 13:58 [facility] (Rec: 10/26/21 13:59 [facility] [id number]) Nutrition Malnutrition Evidence of Malnutrition Exists Yes Malnutrition (severe): Acute Illness/Injury Evidenced By Suboptimal Energy Intake ( Severe),Physical Changes (Mild ),Physical Changes (Moderate) Clinical Problem Acute Disease or Injury Related Malnutrition Etiology related to physiological changes decreasing appetite and increasing nutrient needs Signs/Symptoms as evidenced by moderate muscle wasting in the clavicular region as well as hamstrings, and mild muscle wasting in the temporal region , shoulders and calves per NFPA, as well as report of poor appetite and oral intakes for the past 2 weeks ( suspected prolonged poor oral intake of less than or equal to 50% of estimated energy needs for greater than 5 days) . Status Active Problem Recommendation Dietitian Recommendations/Changes Regular diet with cut up foods . Ensure Enlive 4x/day with medpass (120mL). Magic Cup daily with lunch. Ensure Pudding BID with breakfast and dinner. Trialed Ensure Enlive vanilla milkshake with lunch today. Will monitor tolerance of ONS use and make adjustments as needed. Lab / Micro Data Result Diagrams: 10/28/21 08:25 10/28/21 08:25 Labs: Laboratory Results - last 24 hr 10/27/21 16:31: POC Glucose 241 H 10/27/21 22:03: POC Glucose 168 H 10/28/21 06:38: POC Glucose 128 H 10/28/21 08:25: Sodium 142, Potassium 4.1, Chloride 114 H, Carbon Dioxide 21.0, Anion Gap 7, BUN 22 H, Creatinine 1.23, Estim Creat Clear Calc 56.05, Est GFR (MDRD) Af Amer 74, Est GFR (MDRD) Non-Af 62, BUN/Creatinine Ratio 17.9, Glucose 123 H, Calcium 7.8 L 10/28/21 08:25: WBC 5.8, RBC 2.72 L, Hgb 8.2 L, Hct 25.2 L, MCV 92.6, MCH 30.1, MCHC 32.5, RDW Std Deviation 50.4 H, RDW Coeff of Jaleel 15.0 H, Plt Count 84 L, MPV 10.5, Immature Gran % (Auto) 0.500, Neut % (Auto) 58.1, Lymph % (Auto) 27.4, [place] % (Auto) 12.7 H, Eos % (Auto) 1.0, Baso % (Auto) 0.3, Absolute Neuts (auto) 3.4, Absolute Lymphs (auto) 1.60, Nucleated RBC % 0 10/28/21 11:14: POC Glucose 125 H Micro: Microbiology 10/25/21 13:50 Blood Culture (Wb) - Anticubital Right Blood Culture - Preliminary No growth in 48 hours. 10/25/21 14:10 Blood Culture (Wb) - Anticubital Left Blood Culture - Preliminary No growth in 48 hours. Physical Exam Narrative Hypotension resolved. Blood pressure systolic in 120s. equipment monitor phototypesetting shows paced rhythm. Patient has chronic straining of urine probably due to BPH/prostate cancer. Physical exam General: Awake, cognitive slowness, responds slowly. HEENT: Atraumatic, PERRLA, EOMI, Normocephalic Oral: Oral mucosa moist. No Gingival or Mucosal Lesions/ Ulcerations Neck: Supple, No JVD, Negative Carotid Bruits Lungs: Air entry diminished in bilateral lung bases. No crepitation/rhonchi Cardiovascular: Paced rhythm, normal S1, Normal S2, systolic murmur over right second ICS. Status post AICD Abdomen: Bowel Sounds Present, Soft, Non Tender, Non-Distended : No renal angle tenderness. No suprapubic tenderness. Extremities: No edema, Capillary Refill Less than 3 Seconds Skin: No rashes, No breakdown Musculoskeletal: No Tenderness to Palpation of Joints or Extremities Neurological: DTR 2+/4, muscle strength 4/5 at major joints. Psych/Mental Status: Flat affect. Dementia Assessment & Plan Assessment/Plan (1) JANESSA (acute kidney injury): (2) Acute dehydration: (3) Acute hypotension: (4) Debility: PLAN: Patient is 71-year-old gentleman admitted from [facility] with decreased/poor p.o. intake, generalized weakness, loss of weight. Patient recently treated for UTI. 1. Acute kidney injury, prerenal from hypotension/hypovolemia Patient's admitting creatinine was 2.33, previous creatinine from [facility] records was 1.0. Creatinine responded to IV. Last BUN/creatinine 29/1.39. Follow-up on kidney and bladder ultrasound, is ordered Hold losartan, Lasix, statin. Monitor kidney function electrolytes. 10/28: Creatinine 1.23. JANESSA resolved. IV fluid discontinued. 2. CAD status post CABG, status post AICD. Patient had hypotension most likely due to dehydration, medication side effect. Patient blood pressure responded with fluid. Hypotension resolved. Patient on metoprolol 12.5 mg p.o. twice daily. Monitor vitals. 10/28: Blood pressure systolic in 120s. Continue to hold antihypertensive medi cation 3. Cognitive impairment, likely secondary to vascular dementia, history of strokes Continue on Plavix. Continue to hold losartan 4. Type II DM, blood glucose are controlled Continue on Januvia and blood glucose checks with insulin sliding scale 10/28 was 123 in BMP. 5. Prostate cancer, on leuprolide and bicalutamide with anemia of chronic disease, normochromic normocytic anemia/neoplastic disease: He globin is 8.6. Patient admitted with hemoglobin 12.2 probably hemoconcentrated. No acute blood loss. Hold leuprolide and be flutamide. 6. DVT PPx - Heparin SC. Discontinue if platelet count drops less than 50,000 or hemoglobin less than 8 g% 7. Code status - Full code As per the daughter, patient had a stroke and his cognitive decline/dementia. He also has recently diagnosed prostate cancer about 1 to 2 years ago and follows outside urologist and oncologist. I gave her options of oncologist around the [facility]. Patient also had COVID infection found in outside hospital in July 2021 when he was admitted in [facility] [place] after 2 falls. After that patient had 1 doseof COVID-vaccine. Patient might have dementia probably vascular dementia Charges/Coding Visit Charges Inpatient E&M: 80935 Subs Hosp L2
[2021-10-28] MEDS: Insulin Lispro 100 UNIT/ML INSULN.PEN SC ×2 (16:29→22:26)
[2021-10-28] MEDS: LINAGLIPTIN 5 MG TABLET PO (16:30)
[2021-10-28 16:31] LABS: Bedside Glucose 208 mg/dL (74-106)
[2021-10-28] MEDS: Menthol/Lanolin/Calamine/Znox 113 GM Tube 1 APPLIC TOPICAL ×2 (16:31→22:39)
[2021-10-28] MEDS: 0.9% Saline Lock 10 ML Syringe IV (22:26)
[2021-10-28] MEDS: Mirtazapine 15 MG Tablet 7.5 MG PO (22:33)
[2021-10-28] MEDS: Atorvastatin Calcium 20 MG Tablet PO (22:33)
[2021-10-28 22:51] LABS: Bedside Glucose 228 mg/dL (74-106)
[2021-10-29] VITALS (12 sets, daily range): BP systolic 111–146; BP diastolic 70–90; PULSE 72–130; RESP 16–18; TEMP 36.1–37.6; O2SAT 90–99
[2021-10-29] MEDS: Insulin Lispro 100 UNIT/ML INSULN.PEN SC ×3 (06:44→16:30)
[2021-10-29] MEDS: Menthol/Lanolin/Calamine/Znox 113 GM Tube 1 APPLIC TOPICAL ×3 (06:45→21:35)
[2021-10-29 07:00] LABS: Anion Gap 6 (5-15); BUN 20 mg/dL (7-18); BUN/Creat Ratio 15.4 RATIO (10-20); Calcium,Total 8.3 mg/dL (8.5-10.1); Chloride 110 mmol/L (98-107); EST Glomerular Filtration Rate 58 mL/min (>60); Est Glom Filt Rate - Afr Amer 70 mL/min (>60); Estimated Creatinine Clearance 53.03 ml/min; Glucose 197 mg/dL (74-106); Potassium 4.7 mmol/L (3.5-5.1); Sodium Level 141 mmol/L (136-145)
[2021-10-29 07:46] LABS: Bedside Glucose 185 mg/dL (74-106)
[2021-10-29] MEDS: Cyanocobalamin 500 MCG Tablet PO (08:25)
[2021-10-29] MEDS: Metoprolol(XL)Succ 25 MG Tablet 12.5 MG PO ×2 (08:25→21:43)
[2021-10-29] MEDS: Clopidogrel Bisulfate 75 MG Tablet PO (08:26)
[2021-10-29] MEDS: Ascorbic Acid 500 MG Tablet PO ×2 (08:26→21:44)
[2021-10-29] MEDS: Vitamin B Comp W-C Capsule 1 CAP PO (08:26)
[2021-10-29] MEDS: Heparin Injection (Vial) 5,000 UNIT/ML VIAL 5000 UNIT SC ×2 (08:26→21:39)
--- NOTE | 2021-10-29 11:14 | CASEMGMT ---
SW faxed today's PT/OT notes to [facility]. Kimmie Seals CURTAIN HEMMER AUTOMATICBrigitte SANZ
--- NOTE | 2021-10-29 13:52 | PN.HOSP_ITS ---
Subjective Subjective Follow-up for JANESSA, dementia Objective Data Objective Data Vital Signs: Vital Signs Temp Pulse Resp BP Pulse Ox 98.3 F 108 H 18 132/77 H 90 10/29/21 08:30 10/29/21 11:50 10/29/21 08:30 10/29/21 08:30 10/29/21 08:40 Oxygen Delivery Method Room Air Weight: 172 lb 6.424 oz Body Mass Index (BMI) 21.9 Intake & Output: Intake and Output for Last 24 Hours 10/27/21 10/28/21 10/29/21 23:59 23:59 23:59 Intake Total 3735.00 / 3735.00 2925 / 2925 480 / 480 Output Total 1650 / 1900 950 / 950 Balance 2085.00 / 1835.00 1974 480 / 480 Medical Nutrition Assessment Dietitian: Malnutrition Criteria Met Start: 10/26/21 13:58 Freq: Status: Active Protocol: Document 10/26/21 13:58 [facility] (Rec: 10/26/21 13:59 [facility] [id number]) Nutrition Malnutrition Evidence of Malnutrition Exists Yes Malnutrition (severe): Acute Illness/Injury Evidenced By Suboptimal Energy Intake ( Severe),Physical Changes (Mild ),Physical Changes (Moderate) Clinical Problem Acute Disease or Injury Related Malnutrition Etiology related to physiological changes decreasing appetite and increasing nutrient needs Signs/Symptoms as evidenced by moderate muscle wasting in the clavicular region as well as hamstrings, and mild muscle wasting in the temporal region , shoulders and calves per NFPA, as well as report of poor appetite and oral intakes for the past 2 weeks ( suspected prolonged poor oral intake of less than or equal to 50% of estimated energy needs for greater than 5 days) . Status Active Problem Recommendation Dietitian Recommendations/Changes Regular diet with cut up foods . Ensure Enlive 4x/day with medpass (120mL). Magic Cup daily with lunch. Ensure Pudding BID with breakfast and dinner. Trialed Ensure Enlive vanilla milkshake with lunch today. Will monitor tolerance of ONS use and make adjustments as needed. Lab / Micro Data Result Diagrams: 10/28/21 08:25 10/29/21 06:07 Labs: Laboratory Results - last 24 hr 10/28/21 16:23: POC Glucose 208 H 10/28/21 22:12: POC Glucose 228 H 10/29/21 06:07: Sodium 141, Potassium 4.7, Chloride 110 H, Carbon Dioxide 25.0, Anion Gap 6, BUN 20 H, Creatinine 1.30, Estim Creat Clear Calc 53.03, Est GFR (MDRD) Af Amer 70, Est GFR (MDRD) Non-Af 58 L, BUN/Creatinine Ratio 15.4, G lucose 197 H, Calcium 8.3 L 10/29/21 06:42: POC Glucose 185 H Micro: Microbiology 10/25/21 13:50 Blood Culture (Wb) - Anticubital Right Blood Culture - Preliminary No growth in 48 hours. 10/25/21 14:10 Blood Culture (Wb) - Anticubital Left Blood Culture - Preliminary No growth in 48 hours. Radiography Diagnostic Testing: Radiology Impression Renal Ultrasound 10/25/21 15:44 IMPRESSION: Minimal echogenic debris within the urinary bladder. There is an anechoic structure in the right kidney compatible with a cyst. No other abnormalities identified. Physical Exam Narrative Hypotension resolved. BP 132/77 Physical exam General: Awake, cognitive slowness, responds slowly. Low pitched voice HEENT: Atraumatic, PERRLA, EOMI, Normocephalic Oral: Oral mucosa moist. No Gingival or Mucosal Lesions/ Ulcerations Neck: Supple, No JVD, Negative Carotid Bruits Lungs: Air entry diminished in bilateral lung bases. No crepitation/rhonchi Cardiovascular: Paced rhythm, normal S1, Normal S2, systolic murmur over right second ICS. Status post AICD Abdomen: Bowel Sounds Present, Soft, Non Tender, Non-Distended : No renal angle tenderness. No suprapubic tenderness. Extremities: No edema, Capillary Refill Less than 3 Seconds Skin: No rashes, No breakdown Musculoskeletal: No Tenderness to Palpation of Joints or Extremities Neurological: DTR 2+/4, muscle strength 4/5 at major joints. Psych/Mental Status: Flat affect. Dementia Assessment & Plan Assessment/Plan (1) JANESSA (acute kidney injury): (2) Acute dehydration: (3) Acute hypotension: (4) Debility: PLAN: Patient is 71-year-old gentleman admitted from [facility] with decreased/poor p.o. intake, generalized weakness, loss of weight. Patient recently treated for UTI. 1. Acute kidney injury, prerenal from hypotension/hypovolemia Patient's admitting creatinine was 2.33, previous creatinine [facility] was 1.0. Creatinine responded to IV. Last BUN/creatinine 28/06.39. Follow-up on kidney and bladder ultrasound, is ordered Hold losartan, Lasix, statin. Monitor kidney function electrolytes. 10/28: Creatinine 1.23. JANESSA resolved. IV fluid discontinued. 10/29: Patient has chronic straining for the urine. Incontinence. 2. CAD status post CABG, status post AICD. Patient had hypotension most likely due to dehydration, medication side effect. Patient blood pressure responded with fluid. Hypotension resolved. Patient on metoprolol 12.5 mg p.o. twice daily. Monitor vitals. 10/28: Blood pressure systolic in 120s. Continue to hold antihypertensive medication 10/29: Blood pressure is in normal range. 3. Cognitive impairment, likely secondary to vascular dementia, history of strokes Continue on Plavix. Continue to hold losartan 4. Type II DM, blood glucose are controlled Continue on Januvia and blood glucose checks with insulin sliding scale 10/28 was 123 in BMP. 10/29: Glucose fluctuates, high. On medium scale Humalog sliding scale. 5. Prostate cancer, on leuprolide and bicalutamide with anemia of chronic disease, normochromic normocytic anemia/neoplastic disease: He globin is 8.6. Patient admitted with hemoglobin 12.2 probably hemoconcentrated. No acute blood loss. Hold leuprolide and be flutamide. 6. DVT PPx - Heparin SC. Discontinue if platelet count drops less than 50,000 or hemoglobin less than 8 g% 7. Code status - Full code As per the daughter, patient had a stroke and his cognitive decline/dementia. He also has recently diagnosed prostate cancer about 1 to 2 years ago and follows outside urologist and oncologist. I gave her options of oncologist around the [facility]. Patient also had COVID infection found in outside hospital in July 2021 when he was admitted in [facility] after 2 falls. After that patient had 1 doseof COVID-vaccine. Patient might have dementia probably vascular dementia Charges/Coding Visit Charges Inpatient E&M: 17810 Subs Hosp L2
--- NOTE | 2021-10-29 14:59 | CASEMGMT ---
MASON did check with Kamille at [facility]. She had troubles starting the pre-cert yesterday as insurance told her a pre-cert request was already started. She called the insurance company and resolved the issue. Await pre-cert. Kimmie SANZ
[2021-10-29] MEDS: LINAGLIPTIN 5 MG TABLET PO (16:31)
[2021-10-29 16:35] LABS: Bedside Glucose 199 mg/dL (74-106)
[2021-10-29 16:35] LABS: Bedside Glucose 168 mg/dL (74-106)
[2021-10-29] MEDS: Atorvastatin Calcium 20 MG Tablet PO (21:40)
[2021-10-29] MEDS: Mirtazapine 15 MG Tablet 7.5 MG PO (21:42)
[2021-10-29] MEDS: 0.9% Saline Lock 10 ML Syringe IV (21:48)
[2021-10-30] VITALS (9 sets, daily range): BP systolic 101–132; BP diastolic 59–81; PULSE 71–95; RESP 16–18; TEMP 36.7–37.7; O2SAT 96–100
[2021-10-30 00:20] LABS: Bedside Glucose 132 mg/dL (74-106)
[2021-10-30] MEDS: Menthol/Lanolin/Calamine/Znox 113 GM Tube 1 APPLIC TOPICAL ×3 (05:07→21:51)
[2021-10-30 07:20] LABS: Anion Gap 7 (5-15); BUN 20 mg/dL (7-18); BUN/Creat Ratio 16.9 RATIO (10-20); Calcium,Total 8.2 mg/dL (8.5-10.1); Chloride 111 mmol/L (98-107); Creatinine, Serum 1.18 mg/dL (0.70-1.30); EST Glomerular Filtration Rate 65 mL/min (>60); Est Glom Filt Rate - Afr Amer 78 mL/min (>60); Estimated Creatinine Clearance 58.43 ml/min; Glucose 117 mg/dL (74-106); Potassium 4.3 mmol/L (3.5-5.1); Sodium Level 142 mmol/L (136-145)
[2021-10-30] MEDS: Vitamin B Comp W-C Capsule 1 CAP PO (09:01)
[2021-10-30] MEDS: Clopidogrel Bisulfate 75 MG Tablet PO (09:01)
[2021-10-30] MEDS: Ascorbic Acid 500 MG Tablet PO ×2 (09:01→21:53)
[2021-10-30] MEDS: Cyanocobalamin 500 MCG Tablet PO (09:01)
[2021-10-30] MEDS: Heparin Injection (Vial) 5,000 UNIT/ML VIAL 5000 UNIT SC ×2 (09:02→21:59)
[2021-10-30] MEDS: Metoprolol(XL)Succ 25 MG Tablet 12.5 MG PO ×2 (09:02→21:52)
[2021-10-30 11:11] LABS: Bedside Glucose 122 mg/dL (74-106)
[2021-10-30 11:26] LABS: Bedside Glucose 123 mg/dL (74-106)
[2021-10-30] MEDS: 0.9% Saline Lock 10 ML Syringe IV (13:10)
--- NOTE | 2021-10-30 14:20 | PN.HOSP_ITS ---
Objective Data Objective Data Vital Signs: Vital Signs Temp Pulse Resp BP Pulse Ox 99.0 F 72 16 130/81 H 97 10/30/21 09:01 10/30/21 09:02 10/30/21 09:01 10/30/21 09:01 10/30/21 09:01 Oxygen Delivery Method Room Air Weight: 162 lb 7.691 oz Body Mass Index (BMI) 21.9 Intake & Output: Intake and Output for Last 24 Hours 10/28/21 10/29/21 10/30/21 23:59 23:59 23:59 Intake Total 2925 / 2925 720 / 720 360 / 360 Output Total 950 / 950 Balance 1974 720 / 720 360 / 360 Medical Nutrition Assessment Dietitian: Malnutrition Criteria Met Start: 10/26/21 13:58 Freq: Status: Active Protocol: Document 10/26/21 13:58 JUDITH (Rec: 10/26/21 13:59 JUDITH [id number]) Nutrition Malnutrition Evidence of Malnutrition Exists Yes Malnutrition (severe): Acute Illness/Injury Evidenced By Suboptimal Energy Intake ( Severe),Physical Changes (Mild ),Physical Changes (Moderate) Clinical Problem Acute Disease or Injury Related Malnutrition Etiology related to physiological changes decreasing appetite and increasing nutrient needs Signs/Symptoms as evidenced by moderate muscle wasting in the clavicular region as well as hamstrings, and mild muscle wasting in the temporal region , shoulders and calves per NFPA, as well as report of poor appetite and oral intakes for the past 2 weeks ( suspected prolonged poor oral intake of less than or equal to 50% of estimated energy needs for greater than 5 days) . Status Active Problem Recommendation Dietitian Recommendations/Changes Regular diet with cut up foods . Ensure Enlive 4x/day with medpass (120mL). Magic Cup daily with lunch. Ensure Pudding BID with breakfast and dinner. Trialed Ensure Enlive vanilla milkshake with lunch today. Will monitor tolerance of ONS use and make adjustments as needed. Lab / Micro Data Result Diagrams: 10/28/21 08:25 10/30/21 05:55 Labs: Laboratory Results - last 24 hr 10/29/21 11:45: POC Glucose 168 H 10/29/21 16:29: POC Glucose 199 H 10/29/21 21:31: POC Glucose 132 H 10/30/21 05:55: Sodium 142, Potassium 4.3, Chloride 111 H, Carbon Dioxide 24.0, Anion Gap 7, BUN 20 H, Creatinine 1.18, Estim Creat Clear Calc 58.43, Est GFR (MDRD) Af Amer 78, Est GFR (MDRD) Non-Af 65, BUN/Creatinine Ratio 16.9, Glucose 117 H, Calcium 8.2 L 10/30/21 06:35: POC Glucose 122 H 10/30/21 11:19: POC Glucose 123 H Micro: Microbiology 10/25/21 13:50 Blood Culture (Wb) - Anticubital Right Blood Culture - Preliminary No growth in 48 hours. 10/25/21 14:10 Blood Culture (Wb) - Anticubital Left Blood Culture - Preliminary No growth in 48 hours. Physical Exam Narrative No acute issues. Patient is more awake and alert today. Denies any problem in the urination including straining of urine although he described few days ago. Unclear whether he understands the question or significance of questions. Physical exam General: Awake, alert, cognitive slowness, responds slowly. HEENT: Atraumatic, PERRLA, EOMI, Normocephalic Oral: Oral mucosa moist. No Gingival or Mucosal Lesions/ Ulcerations Neck: Supple, No JVD, Negative Carotid Bruits Lungs: Air entry diminished in bilateral lung bases. No crepitation/rhonchi Cardiovascular: Paced rhythm, normal S1, Normal S2, systolic murmur over right second ICS. Status post AICD Abdomen: Bowel Sounds Present, Soft, Non Tender, Non-Distended : No renal angle tenderness. No suprapubic tenderness. Extremities: No edema, Capillary Refill Less than 3 Seconds Skin: No rashes, No breakdown Musculoskeletal: No Tenderness to Palpation of Joints or Extremities Neurological: DTR 2+/4, muscle strength 4/5 at major joints. Psych/Mental Status: Flat affect. Dementia. Cognitive deficit Assessment & Plan Assessment/Plan (1) JANESSA (acute kidney injury): (2) Acute dehydration: (3) Acute hypotension: (4) Debility: PLAN: Patient is 71-year-old gentleman admitted from [facility] with decreased/poor p.o. intake, generalized weakness, loss of weight. Patient recently treated for UTI. 1. Acute kidney injury, prerenal from hypotension/hypovolemia Patient's admitting creatinine was 2.33, previous creatinine from long term records was 1.0. Creatinine responded to IV. Last BUN/creatinine 29/.39. Follow-up on kidney and bladder ultrasound, is ordered Hold losartan, Lasix, statin. Monitor kidney function electrolytes. 10/28: Creatinine 1.23. JANESSA resolved. IV fluid discontinued. 10/29: Patient has chronic straining for the urine. Incontinence. 10/30: Today patient denies any straining of the urine. History is unreliable as patient has advanced dementia. Provider does not comprehend. 2. CAD status post CABG, status post AICD. Patient had hypotension most likely due to dehydration, medication side effect. Patient blood pressure responded with fluid. Hypotension resolved. Patient on metoprolol 12.5 mg p.o. twice daily. Monitor vitals. 10/28: Blood pressure systolic in 120s. Continue to hold antihypertensive medication 10/29: Blood pressure is in normal range. 3. Cognitive impairment, likely secondary to vascular dementia, history of strokes Continue on Plavix. Continue to hold losartan 4. Type II DM, blood glucose are controlled Continue on Januvia and blood glucose checks with insulin sliding scale 10/28 was 123 in BMP. 10/29: Glucose fluctuates, high. On medium scale Humalog sliding scale. 10/30: Glucose in normal range 5. Prostate cancer, on leuprolide and bicalutamide with anemia of chronic disease, normochromic normocytic anemia/neoplastic disease: He globin is 8.6. Patient admitted with hemoglobin 12.2 probably hemoconcentrated. No acute blood loss. Hold leuprolide and be flutamide. 6. DVT PPx - Heparin SC. Discontinue if platelet count drops less than 50,000 or hemoglobin less than 8 g% 7. Code status - Full code As per the daughter, patient had a stroke and his cognitive decline/dementia. He also has recently diagnosed prostate cancer about 1 to 2 years ago and [facility] outside urologist and oncologist. I gave her options of oncologist around the [facility]. Patient also had COVID infection found in outside hospital in July 2021 when he was admitted in [facility] after 2 falls. After that patient had 1 doseof COVID-vaccine. Patient might have dementia probably vascular dementia Charges/Coding Visit Charges Inpatient E&M: 75109 Subs Hosp L2
[2021-10-30] MEDS: LINAGLIPTIN 5 MG TABLET PO (16:25)
[2021-10-30] MEDS: Insulin Lispro 100 UNIT/ML INSULN.PEN SC (16:25)
[2021-10-30 16:31] LABS: Bedside Glucose 244 mg/dL (74-106)
[2021-10-30] MEDS: Atorvastatin Calcium 20 MG Tablet PO (21:51)
[2021-10-30] MEDS: Mirtazapine 15 MG Tablet 7.5 MG PO (21:53)
[2021-10-30 22:05] LABS: Bedside Glucose 125 mg/dL (74-106)
[2021-10-31 02:59] VITALS: PULSE 74
[2021-10-31 03:43] VITALS: BP 100/58; PULSE 72; RESP 18; TEMP 37; O2SAT 94
[2021-10-31] MEDS: Menthol/Lanolin/Calamine/Znox 113 GM Tube 1 APPLIC TOPICAL (06:23)
[2021-10-31 06:36] LABS: Bedside Glucose 117 mg/dL (74-106)
[2021-10-31 06:59] VITALS: PULSE 71
[2021-10-31] MEDS: Vitamin B Comp W-C Capsule 1 CAP PO (08:14)
--- NOTE | 2021-10-31 08:41 | PCM.TXEXTCAR ---
Diet 10/26/21 11:55 Diet: Regular - General Is pt able to select menu?: No Diet Comments: CUT UP FOOD; vanilla ensure pudding at B&D; sanchez magic cup at L Routine Orders/Code Status Suppository Type: Dulcolax 10mg Suppository Frequency: Daily PRN Routine Lab Work: CBC ( Weekly.) and BMP Code Status: Full Code Therapies Weight Bearing: Weight bearing as tolerated Extremity Affected:: Bilateral Lower Physical Therapy: Eval and Treat Occupational Therapy: Eval and Treat Speech Therapy: Eval and Treat Problem/Diagnosis (1) JANESSA (acute kidney injury): Status: Acute (2) Acute dehydration: Status: Acute (3) Acute hypotension: Status: Acute (4) Debility: Status: Acute Allergies/Procedures Done in Hospital Allergies No Known Allergies Allergy (Verified 10/25/21 14:29) Type of Care/Length of Stay Estimated LOS: Convalescent Care Less Than 30 days Type of Care Needed: Intermediate Rehab Potential: Good Prognosis: Good Additional Orders/Day of Discharge Day of Discharge: 10/31/21 Dietary and Speech Recommendations Dietitian Recommendations/Changes: Continue Regular diet with cut up foods given malnutrition. Will continue Ensure Enlive 4x/day with medpass (120mL), Magic Cup daily with lunch, and Ensure Pudding BID with breakfast and dinner. Pt needs assistance w/ meal set-up. Recommend limiting regular coke consumption to assist w/ glycemic control. Discharge Plan Admission Admit Date/Time: 10/25/21 15:23 Primary Reason for Your Visit: Acute kidney injury probably prerenal Attending Provider: Jam Albarran Primary Care Provider: Haleigh Weldon Consulting Providers: Kacie Ortega Discharge Orders/Prescriptions Prescriptions: New metoprolol succinate 25 mg Tablet Extended Release 24 Hr 12.5 mg PO BID Qty: 60 RF: 0 acetaminophen [Tylenol] 325 mg Tablet 650 mg PO Q6H PRN PRN (Reason: Pain Score 1-10/Temp > 100.7 F) Qty: 0 RF: 0 menthol-zinc oxide [Calmoseptine] 0.44-20.6 % Ointment 1 applic topical TID Qty: 0 RF: 0 Continued atorvastatin 20 mg tablet 20 mg PO QHS RF: 0 amlodipine 2.5 mg tablet 2.5 mg PO DAILY RF: 0 bicalutamide 50 mg tablet 50 mg PO DAILY RF: 0 digoxin 125 mcg (0.125 mg) tablet 125 mcg PO DAILY RF: 0 furosemide 40 mg tablet 40 mg PO DAILY PRN PRN (Reason: Edema) RF: 0 pantoprazole 20 mg tablet,delayed release (DR/EC) 20 mg PO DAILY RF: 0 sertraline 25 mg tablet 50 mg PO DAILY RF: 0 mirtazapine 7.5 mg tablet 7.5 mg PO QHS RF: 0 Eligard (6 month) 45 mg syringe 45 mg SUBCUT X1 RF: 0 Januvia 100 mg tablet 100 mg PO DINNER RF: 0 multivitamin Tablet 1 tab PO DAILY RF: 0 acetaminophen 325 mg Tablet 650 mg PO Q4H PRN (Reason: Fever Or Pain) RF: 0 ascorbic acid (vitamin C) [Vitamin C] 500 mg Tablet 500 mg PO BID RF: 0 ferrous sulfate 325 mg (65 mg iron) Tablet 325 mg PO BID RF: 0 vitamin B complex Tablet 1 tab PO DAILY RF: 0 albuterol sulfate [Ventolin HFA] 90 mcg/actuation Hfa Aerosol Inhaler 2 puff INHALATION Q2H PRN (Reason: Shortness Of Breath) RF: 0 omega-3 fatty acids Capsule 1,000 mg PO DAILY RF: 0 magnesium oxide 400 mg magnesium Capsule 400 mg PO DAILY RF: 0 cyanocobalamin (vitamin B-12) 500 mcg Tablet 500 mcg PO DAILY RF: 0 clopidogrel 75 mg tablet 75 mg PO DAILY Qty: 0 RF: 0 cholecalciferol (vitamin D3) 25 mcg (1,000 unit) Capsule 25 mcg PO DAILY Qty: 0 RF: 0 Changed losartan 50 mg tablet 50 mg PO DAILY Qty: 0 RF: 0 Discontinued metoprolol succinate 200 mg tablet extended release 24 hr 200 mg PO BID RF: 0 Referrals / Follow Up: Haleigh Weldon [Primary Care Provider] - Within 2 Weeks Disposition Disposition (needs filled in before D/C Order can be placed): NonSkilled NH/Intermed Care
[2021-10-31 09:31] VITALS: BP 97/61; PULSE 70; RESP 18; TEMP 36.5; O2SAT 97
[2021-10-31] MEDS: Clopidogrel Bisulfate 75 MG Tablet PO (09:34)
[2021-10-31] MEDS: Ascorbic Acid 500 MG Tablet PO (09:34)
[2021-10-31] MEDS: Heparin Injection (Vial) 5,000 UNIT/ML VIAL 5000 UNIT SC (09:34)
[2021-10-31] MEDS: Cyanocobalamin 500 MCG Tablet PO (09:34)
--- NOTE | 2021-10-31 11:15 | CASEMGMT ---
Patient was denied by insurance to return skilled. MASON notified physician patient can be discharged. SW called patient's daughter, Mirella and left her a message letting her know patient will be going back to [facility] today. Insurance did not approve him to go skilled so he will return private pay. MASON told her SW will let her know when SW has more information. Kimmie Seals CLINICAL NURSE LEADER [employer]
[2021-10-31 11:21] LABS: Bedside Glucose 140 mg/dL (74-106)
--- NOTE | 2021-10-31 12:03 | DS.PCM_ITS ---
Providers Date of Admission: 10/25/21 Date of Discharge: 10/31/21 Primary Care Physician: Haleigh Weldon Reason For Visit: JANESSA/DEBILITY Diagnosis Discharge Diagnosis (1) JANESSA (acute kidney injury): Status: Acute Code(s): N17.9 - Acute kidney failure, unspecified (2) Acute dehydration: Status: Acute Code(s): E86.0 - Dehydration (3) Acute hypotension: Status: Acute Code(s): I95.9 - Hypotension, unspecified (4) Debility: Status: Acute Code(s): R53.81 - Other malaise Medications at Discharge Home Medications Eligard (6 month) 45 mg SUBCUT X1 10/25/21 Januvia 100 mg PO DINNER 10/25/21 acetaminophen 650 mg PO Q4H PRN 10/25/21 albuterol sulfate [Ventolin HFA] 2 puff INHALATION Q2H PRN 10/25/21 amlodipine 2.5 mg PO DAILY 10/25/21 ascorbic acid (vitamin C) [Vitamin C] 500 mg PO BID 10/25/21 atorvastatin 20 mg PO QHS 10/25/21 bicalutamide 50 mg PO DAILY 10/25/21 cyanocobalamin (vitamin B-12) 500 mcg PO DAILY 10/25/21 digoxin 125 mcg PO DAILY 10/25/21 furosemide 40 mg PO DAILY PRN PRN 10/25/21 magnesium oxide 400 mg PO DAILY 10/25/21 mirtazapine 7.5 mg PO QHS 10/25/21 multivitamin 1 tab PO DAILY 10/25/21 omega-3 fatty acids 1,000 mg PO DAILY 10/25/21 pantoprazole 20 mg PO DAILY 10/25/21 sertraline 50 mg PO DAILY 10/25/21 vitamin B complex 1 tab PO DAILY 10/25/21 acetaminophen [Tylenol] 650 mg PO Q6H PRN PRN #0 tab 10/31/21 cholecalciferol (vitamin D3) 25 mcg PO DAILY #0 cap 10/31/21 clopidogrel 75 mg PO DAILY #0 tab 10/31/21 ferrous sulfate 325 mg PO QODAY #0 tab 10/31/21 insulin lispro [Humalog KwikPen Insulin] See Protocol SUBCUT ACHS #3 ml 10/31/21 losartan 50 mg PO DAILY #0 tab 10/31/21 menthol-zinc oxide [Calmoseptine] 1 applic TOPICAL TID #0 g 10/31/21 metoprolol succinate 12.5 mg PO BID #60 tab 10/31/21 Hospital Course Summary of Care Provided Hospital Course: Patient is 71-year-old gentleman admitted from [facility] with decreased/poor p.o. intake, generalized weakness, loss of weight. Patient recently treated for UTI. 1. Acute kidney injury, prerenal from hypotension/hypovolemia Patient's admitting creatinine was 2.33, previous creatinine from long-term records was 1.0. Creatinine responded to IV. Last BUN/creatinine 29/1.39. Follow-up on kidney and bladder ultrasound, is ordered Hold losartan, Lasix, statin. Monitor kidney function electrolytes. 10/28: Creatinine 1.23. JANESSA resolved. IV fluid discontinued. 10/31: Patient goading good amount of urine. Has history of prostate cancer and sometimes straining for the urination. History difficult due to d ementia/inability to comprehend the question. 2. CAD status post CABG, status post AICD. Patient had hypotension most likely due to dehydration, medication side effect. Patient blood pressure responded with fluid. Hypotension resolved. Patient on metoprolol 12.5 mg p.o. twice daily. Monitor vitals. 10/28: Blood pressure systolic in 120s. Continue to hold antihypertensive medication 10/29: Blood pressure is in normal range. 3. Cognitive impairment, likely secondary to vascular dementia, history of strokes Continue on Plavix. Continue to hold losartan 4. Type II DM, blood glucose are controlled Continue on Januvia and blood glucose checks with insulin sliding scale 10/28 was 123 in BMP. 10/29: Glucose fluctuates, high. On medium scale Humalog sliding scale. 10/30: Glucose in normal range 5. Prostate cancer, on leuprolide and bicalutamide with anemia of chronic disease, normochromic normocytic anemia/neoplastic disease: He globin is 8.6. Patient admitted with hemoglobin 12.2 probably hemoconcentrated. No acute blood loss. Hold leuprolide and be flutamide. 6. DVT PPx - Heparin SC. Discontinue if platelet count drops less than 50,000 or hemoglobin less than 8 g% 7. Code status - Full code As per the daughter, patient had a stroke and his cognitive decline/dementia. Mira peterson also has recently diagnosed prostate cancer about 1 to 2 years ago and follows outside urologist and oncologist. I gave her options of oncologist around the [facility]. Patient also had COVID infection found in outside hospital in July 2021 when he was admitted in [facility] after 2 falls. After that patient had 1 doseof COVID-vaccine. Patient might have dementia probably vascular dementia Physical Exam Narrative Seen and examined on the day of discharge No acute issues. Patient alertness level fluctuates. Denies any problem in the urination including straining of urine although he described few days ago. Unclear whether he understands the question or significance of questions due to dementia. Daughter confirmed that he has history of prostate cancer and has chronic low-grade tract symptoms sometimes. Physical exam General: Awake, cognitive slowness, responds slowly. HEENT: Atraumatic, PERRLA, EOMI, Normocephalic Oral: Oral mucosa moist. No Gingival or Mucosal Lesions/ Ulcerations Neck: Supple, No JVD, Negative Carotid Bruits Lungs: Air entry diminished in bilateral lung bases. No crepitation/rhonchi Cardiovascular: Paced rhythm, normal S1, Normal S2, systolic murmur over right second ICS. Status post AICD Abdomen: Bowel Sounds Present, Soft, Non Tender, Non-Distended : No renal angle tenderness. No suprapubic tenderness. Extremities: No edema, Capillary Refill Less than 3 Seconds Skin: No rashes, No breakdown Musculoskeletal: No Tenderness to Palpation of Joints or Extremities Neurological: DTR 2+/4, muscle strength 4/5 at major joints. Psych/Mental Status: Flat affect. Dementia. Cognitive deficit Medical Records Data Medical Nutrition Assessment Dietitian: Malnutrition Criteria Met Start: 10/26/21 13:58 Freq: Status: Active Protocol: Document 10/26/21 13:58 [facility] (Rec: 10/26/21 13:59 [facility] [id number]) Nutrition Malnutrition Evidence of Malnutrition Exists Yes Malnutrition (severe): Acute Illness/Injury Evidenced By Suboptimal Energy Intake ( Severe),Physical Changes (Mild ),Physical Changes (Moderate) Clinical Problem Acute Disease or Injury Related Malnutrition Etiology related to physiological changes decreasing appetite and increasing nutrient needs Signs/Symptoms as evidenced by moderate muscle wasting in the clavicular region as well as hamstrings, and mild muscle wasting in the temporal region , shoulders and calves per NFPA, as well as report of poor appetite and oral intakes for the past 2 weeks ( suspected prolonged poor oral intake of less than or equal to 50% of estimated energy needs for greater than 5 days) . Status Active Problem Recommendation Dietitian Recommendations/Changes Regular diet with cut up foods . Ensure Enlive 4x/day with medpass (120mL). Magic Cup daily with lunch. Ensure Pudding BID with breakfast and dinner. Trialed Ensure Enlive vanilla milkshake with lunch today. Will monitor tolerance of ONS use and make adjustments as needed. Weight / BMI Weight Weight: 161 lb 2.526 oz Body Mass Index (BMI) 21.9 ABG / Lab / Microbiology Data Result Diagrams: 10/28/21 08:25 10/30/21 05:55 Laboratory: Laboratory Results - last 24 hr 10/30/21 16:24: POC Glucose 244 H 10/30/21 21:46: POC Glucose 125 H 10/31/21 06:26: POC Glucose 117 H 10/31/21 11:07: POC Glucose 140 H Microbiology: Microbiology 10/25/21 13:50 Blood Culture (Wb) - Anticubital Right Blood Culture - Final No growth in 5 days. 10/25/21 14:10 Blood Culture (Wb) - Anticubital Left Blood Culture - Final No growth in 5 days. Meaningful Use Info Meaningful Use Diagnoses (Choose all that apply): None applicable Discharge Plan Admission Admit Date/Time: 10/25/21 15:23 Primary Reason for Your Visit: Acute kidney injury probably prerenal Attending Provider: Jam Albarran Primary Care Provider: aHleigh Weldon Consulting Providers: Kacie Ortega Discharge Orders/Prescriptions Prescriptions: New metoprolol succinate 25 mg Tablet Extended Release 24 Hr 12.5 mg PO BID Qty: 60 RF: 0 acetaminophen [Tylenol] 325 mg Tablet 650 mg PO Q6H PRN PRN (Reason: Pain Score 1-10/Temp > 100.7 F) Qty: 0 RF: 0 menthol-zinc oxide [Calmoseptine] 0.44-20.6 % Ointment 1 applic topical TID Qty: 0 RF: 0 insulin lispro [Humalog KwikPen Insulin] 100 unit/mL Insulin Pen See Protocol unit subcut ACHS Qty: 3 RF: 2 Continued atorvastatin 20 mg tablet 20 mg PO QHS RF: 0 amlodipine 2.5 mg tablet 2.5 mg PO DAILY RF: 0 bicalutamide 50 mg tablet 50 mg PO DAILY RF: 0 digoxin 125 mcg (0.125 mg) tablet 125 mcg PO DAILY RF: 0 furosemide 40 mg tablet 40 mg PO DAILY PRN PRN (Reason: Edema) RF: 0 pantoprazole 20 mg tablet,delayed release (DR/EC) 20 mg PO DAILY RF: 0 sertraline 25 mg tablet 50 mg PO DAILY RF: 0 mirtazapine 7.5 mg tablet 7.5 mg PO QHS RF: 0 Eligard (6 month) 45 mg syringe 45 mg SUBCUT X1 RF: 0 Januvia 100 mg tablet 100 mg PO DINNER RF: 0 multivitamin Tablet 1 tab PO DAILY RF: 0 acetaminophen 325 mg Tablet 650 mg PO Q4H PRN (Reason: Fever Or Pain) RF: 0 ascorbic acid (vitamin C) [Vitamin C] 500 mg Tablet 500 mg PO BID RF: 0 vitamin B complex Tablet 1 tab PO DAILY RF: 0 albuterol sulfate [Ventolin HFA] 90 mcg/actuation Hfa Aerosol Inhaler 2 puff INHALATION Q2H PRN (Reason: Shortness Of Breath) RF: 0 omega-3 fatty acids Capsule 1,000 mg PO DAILY RF: 0 magnesium oxide 400 mg magnesium Capsule 400 mg PO DAILY RF: 0 cyanocobalamin (vitamin B-12) 500 mcg Tablet 500 mcg PO DAILY RF: 0 clopidogrel 75 mg tablet 75 mg PO DAILY Qty: 0 RF: 0 cholecalciferol (vitamin D3) 25 mcg (1,000 unit) Capsule 25 mcg PO DAILY Qty: 0 RF: 0 Changed losartan 50 mg tablet 50 mg PO DAILY Qty: 0 RF: 0 ferrous sulfate 325 mg (65 mg iron) Tablet 325 mg PO QODAY Qty: 0 RF: 0 Discontinued metoprolol succinate 200 mg tablet extended release 24 hr 200 mg PO BID RF: 0 Referrals / Follow Up: Haleigh Weldon [Primary Care Provider] - Within 2 Weeks Disposition Disposition (needs filled in before D/C Order can be placed): NonSkilled NH/Intermed Care Charges/Coding Visit Charges Inpatient E&M: 58064 Disch Hosp
[2021-10-31 12:53] VITALS: BP 109/71; PULSE 70; RESP 18; TEMP 37.3; O2SAT 97
--- NOTE | 2021-10-31 13:13 | CASEMGMT ---
MASON arranged for patient to get picked up at 1400 via cot. MASON e-mailed orders, COVID test, and brain picker time to Kamille at [facility]. MASON notified RN, tractor trailer operator, and patient's daughter via phone. MASON also called [facility] and spoke with Leonela to make sure Kamille is aware of d/c orders. MAOSN then received an e-mail confirmation from Kamille. All in agreement with d/c plan. Plan: d/c back to [facility] under intermediate level of care. [facility] transported via cot. Kimmie SANZ
== END 2021-10-31 14:23 | disposition intermediate care facility (04) | DRG 682 ==
LOC: ED 15:26 → PCU 15:54
PROVIDERS: Admitting Provider Internal Medicine; Emergency Provider Emergency Medicine; PCP Internal Medicine Geriatric Medicine; Visit Provider Internal Medicine
DX: N17.9 Acute kidney failure, unspecified (principal); E43 Unspecified severe protein-calorie malnutrition; C61 Malignant neoplasm of prostate; E11.9 Type 2 diabetes mellitus without complications; F09 Unspecified mental disorder due to known physiological condition; R62.7 Adult failure to thrive; D63.0 Anemia in neoplastic disease; I95.89 Other hypotension; E78.5 Hyperlipidemia, unspecified; E86.0 Dehydration; I25.5 Ischemic cardiomyopathy; I10 Essential (primary) hypertension; E86.1 Hypovolemia; I25.10 Atherosclerotic heart disease of native coronary artery without angina pectoris; R53.81 Other malaise; Z68.21 Body mass index [BMI] 21.0-21.9, adult; Z95.1 Presence of aortocoronary bypass graft; Z95.810 Presence of automatic (implantable) cardiac defibrillator; Z79.02 Long term (current) use of antithrombotics/antiplatelets; Z79.84 Long term (current) use of oral hypoglycemic drugs; Z79.899 Other long term (current) drug therapy; Z86.16 Personal history of COVID-19; Z86.73 Personal history of transient ischemic attack (TIA), and cerebral infarction without residual deficits; Z28.311 Partially vaccinated for COVID-19
CPT/HCPCS: 36415; 71045; 76770; 80048; 80053; 81001; 82962; 83605; 83690; 83735; 84484; 85025; 85610; 85730; 87040; 87426; 96360; 96361; 96372; 97162; 97166; 97530; 97535; 97802; 97803; 99221; 99285; J7030; A4216; G0378